=== PATIENT | female | born 1995 | race African-American/Black ===

== ENCOUNTER 2016-07-01 19:59 | Emergency (ER) | payer MEDICAID ==
[~2016-07-01] VITALS: Ht 154.9 cm; Wt 68.0 kg
[2016-07-01 20:01] VITALS: BP 122/83
== END 2016-07-01 21:13 | disposition home or self-care (01) ==
LOC: ER 19:59
DX: H60.91 Unspecified otitis externa, right ear (principal); B07.0 Plantar wart; Z90.89 Acquired absence of other organs; Z88.0 Allergy status to penicillin
CPT/HCPCS: A4606; Z7610

== ENCOUNTER 2016-07-10 02:26 | Emergency (ER) | payer MEDICAID | END 2016-07-10 02:59 | disposition home or self-care (01) | LOC: ER 02:26 | DX: Z53.21 Procedure and treatment not carried out due to patient leaving prior to being seen by health care provider (principal) ==